=== PATIENT | female | born 1955 | race Caucasian/White ===

== ENCOUNTER → 2023-05-16 08:38 | Outpatient (REF) | payer OTHER, SELFPAY | LOC: RAD 08:38 | PROVIDERS: ATTENDING PHYSICIAN Physician Assistant; FAMILY PHYSICIAN Physician Assistant Medical | DX: I74.8 Embolism and thrombosis of other arteries (principal); I65.23 Occlusion and stenosis of bilateral carotid arteries | CPT/HCPCS: 93880; 93923; 93930 ==

== ENCOUNTER → 2023-05-18 12:54 | Outpatient (REF) | payer OTHER, SELFPAY | LOC: WDC 12:54 | PROVIDERS: ATTENDING PHYSICIAN Physician Assistant Medical | DX: Z12.31 Encounter for screening mammogram for malignant neoplasm of breast (principal) | CPT/HCPCS: 77063; 77067 ==

== ENCOUNTER → 2023-11-10 07:41 | Outpatient (REF) | payer OTHER, SELFPAY | LOC: RAD 07:41 | PROVIDERS: ATTENDING PHYSICIAN Surgery Vascular Surgery; FAMILY PHYSICIAN Physician Assistant Medical | DX: I65.23 Occlusion and stenosis of bilateral carotid arteries (principal); I74.8 Embolism and thrombosis of other arteries; E78.2 Mixed hyperlipidemia; M81.0 Age-related osteoporosis without current pathological fracture | CPT/HCPCS: 77080; 93880; 93923; 93930 ==

== ENCOUNTER → 2024-07-25 08:22 | Outpatient (REF) | payer OTHER, SELFPAY | LOC: DHVS 08:22 | PROVIDERS: ATTENDING PHYSICIAN Surgery Vascular Surgery; FAMILY PHYSICIAN Physician Assistant Medical | DX: I74.8 Embolism and thrombosis of other arteries (principal); I65.23 Occlusion and stenosis of bilateral carotid arteries | CPT/HCPCS: 93880; 93923; 93930 ==